=== PATIENT | male | born 1990 | race Hispanic/Latino ===

== ENCOUNTER 2019-10-19 03:54 | Emergency (ER) | payer OTHER ==
[2019-10-19] MEDS ORDERED: Ketorolac Tromethamine 30 MG/ML VIAL ONE (05:01)
[2019-10-19] MEDS ORDERED: Acetaminophen 500 MG TAB ONE (05:01)
[2019-10-19 05:26] LABS: #Basophils 0.1 thou/uL (0.0-0.2); #Lymphocytes 1.3 thou/uL (1.20-3.40); #Monocytes 1.3 thou/uL (0.11-0.59); #Neutrophils 10.4 thou/uL (1.40-6.50); %Basophils 0.5 % (0.0-1.0); %Eosinophils 0.4 % (0.0-10.0); %Lymphocytes 9.6 % (21.0-51.0); %Monocytes 9.7 % (0.0-10.0); %Neutrophils 79.9 % (42.0-75.0); Hemoglobin 15.5 g/dL (14.0-18.0); Mean Corpuscular HGB CONC 35.5 g/dL (32.0-36.0); Mean Corpuscular Hemoglobin 31.3 pg (27.0-31.0); Mean Corpuscular Volume 88.1 fL (78.0-98.0); Mean Platelet Volume 7.5 fL (7.4-10.4); Platelet Count 286 thou/uL (130-400); Red Blood Cell (RBC) Count 4.96 mill/uL (4.70-6.10); White Blood Cell (WBC) Count 13.1 thou/uL (4.8-10.8)
[2019-10-19 05:51] LABS: ALT (SGPT) 59 U/L (8-55); AST (SGOT) 16 U/L (5-34); Albumin 4.4 g/dL (3.5-5.0); Alkaline Phosphatase 94 U/L (40-110); Anion Gap 16 mmol/L (10-20); BUN (Urea Nitrogen) 8 mg/dL (8.9-20.6); Bilirubin, Total 0.6 mg/dL (0.2-1.2); CK (CPK) 60 U/L (30-200); Calc. Creatinine Clearance 0 mL/min (70-130); Calcium 9.1 mg/dL (7.8-10.44); Carbon Dioxide 22 mmol/L (22-29); Chloride 103 mmol/L (98-107); Estimated GFR-MDRD Greater than 90; Globulin 3.6 g/dL (2.4-3.5); Glucose 114 mg/dL (70-105); Potassium 3.8 mmol/L (3.5-5.1); Sodium 137 mmol/L (136-145)
--- NOTE | 2019-10-19 07:52 | RAD ---
Left forearm 2 views HISTORY: Injury. FINDINGS: Radius and ulna are intact. No acute fracture, dislocation, or radiopaque foreign bodies are apparent. IMPRESSION : No abnormalities are demonstrated.
--- NOTE | 2019-10-19 07:53 | RAD ---
RADIOGRAPH LEFT HUMERUS 2VIEWS: DATE: 10/19/2019 HISTORY: 29-year-old male with left arm pain FINDINGS: There is no evidence of fracture, periostitis, permeative lesion, osteolytic lesion, or osteoblastic lesion. No radiopaque foreign body or abnormal soft tissue calcification is identified. IMPRESSION: Normal
--- NOTE | 2019-10-19 07:54 | RAD ---
RADIOGRAPH CHEST 1 VIEW: DATE: 10/19/2019 HISTORY: 29-year-old male with dyspnea FINDINGS: There are no airspace densities, pulmonary edema, pneumothorax, or cardiomegaly. The lateral costophr enic angles are sharp. IMPRESSION: No acute cardiopulmonary findings.
== END 2019-10-19 06:15 ==
LOC: ERS 03:54 → EEVIPCON 03:54 → ERS 06:15
DX: M79.602 Pain in left arm (principal)
CPT/HCPCS: 36415; 71045; 80053; 82550; 83880; 84484; 85025; 93005; 96374; J1885